=== PATIENT | male | born 1985 | race Caucasian/White ===

== ENCOUNTER 2020-05-14 13:46 | Outpatient (CLI) | payer OTHER, SELFPAY ==
--- NOTE | 2020-05-14 14:00 | ECG_ITS ---
Measurements Intervals [place] Rate: 73 P: 7 SD: 155 QRS: 26 QRSD: 93 T: 81 QT: 363 QTc: 402 Interpretive Statements SINUS RHYTHM NONSPECIFIC ST & T-WAVE ABNORMALITY- HIGH LATERAL LEADS BASELINE ARTIFACT- I, II, AVR BORDERLINE ECG Electronically Signed On 05-14-2020 14:03:10 GATE TECHNICIAN by Yaniv Martinez D.O.
== END 2020-05-14 13:47 | disposition home or self-care (01) ==
PROVIDERS: Visit Provider Otolaryngology
DX: F17.210 Nicotine dependence, cigarettes, uncomplicated (principal); Z01.818 Encounter for other preprocedural examination; R94.31 Abnormal electrocardiogram [ECG] [EKG]
CPT/HCPCS: 93005

== ENCOUNTER → 2020-05-16 01:19 | Outpatient (CLI) | payer OTHER, SELFPAY ==
[2020-05-16 19:47] LABS: SARS-CoV-2 RNA PCR Negative
== END ==
PROVIDERS: Visit Provider Otolaryngology
DX: Z01.812 Encounter for preprocedural laboratory examination (principal); Z20.822 Contact with and (suspected) exposure to COVID-19
CPT/HCPCS: C9803; U0003; U0005

== ENCOUNTER 2020-05-19 01:32 | Day surgery (SDC) | payer OTHER, SELFPAY ==
[2020-05-13 15:57] VITALS: BMI 25.5
[2020-05-19] VITALS (7 sets, daily range): BP systolic 92–133; BP diastolic 54–81; PULSE 62–87; RESP 14–18; TEMP 36.1–36.8; O2SAT 96–100
--- NOTE | 2020-05-19 06:09 | PM.HPGS ---
History of Present Illness History of Present Illness Consent: Risks, benefits, and alternatives have been discussed and questions answered. Patient agrees to proceed with procedure. Chief complaint: Nasal Septum Deviation Narrative: Chris Becker is a 34 year old male has a markedly deviated nasal septum on the right side chest clear however was soft extremities negative Review of Systems Review of Systems: All systems reviewed & are unremarkable except as noted in HPI and below PMFSH Social History Social History Smoking packs per day: 1.5 Smoking cigarettes per day: 30.0 Years smoked: 20 Smoking pack-years: 30.00 Smoking status: Current every day smoker Tobacco type: cigarettes Second hand tobacco smoke exposure: No Alcohol intake: never Substance use: never Substance use type: does not use Living arrangements: with family Spiritual care concerns: No Meds Home Medications and Allergies Home Medications Medication Instructions Recorded Confirmed Type ibuprofen 600 mg PO Q6H PRN 05/13/20 05/13/20 History loratadine 10 mg PO DAILY 05/13/20 05/13/20 History Allergies Allergy/AdvReac Type Severity Reaction Status Date / Time No Known Allergies Allergy Verified 05/13/20 15:51 Exam Narrative: Exam Narrative: septum markedly deviated chest clear heart of the murmurs abdomen soft straight extremities negative Assessment and Plan Additional Plan plan is a nasal septoplasty
--- NOTE | 2020-05-19 06:15 | WPDHPUPDATE1 ---
History and Physical Update Update Date/Time: 05/19/20 06:15 History and Physical has been reviewed, including an updated exam of the patient. There are NO changes in the patient's condition. Risks, benefits, and alternatives have been discussed and questions answered. Patient agrees to proceed with procedure.
--- NOTE | 2020-05-19 08:58 | P.PNAN_ITS ---
Anes - Initial Pre Proc Eval Procedure: Operation Date: 05/19/20 10:30 Proposed Procedures p Septoplasty - Werner Celeste MD Date/Time: 05/19/20 08:58 Surgeon: Werner Celeste MD Pre Op Diagnosis: Nasal Septum Deviation Patient Data Age: 34 Gender: M Height: 5 ft 7 in Weight: 74 kg Allergies Allergy/AdvReac Type Severity Reaction Status Date / Time No Known Allergies Allergy Verified 05/19/20 08:35 Home Medications Medication Instructions Recorded Confirmed Type ibuprofen 600 mg PO Q6H PRN 05/13/20 05/13/20 History loratadine 10 mg PO DAILY 05/13/20 05/13/20 History Patient hx anesthesia problems: none Family hx anesthesia problems: none [facility] Past Medical History Medical History (Updated 05/19/20 @ 08:57 by David Colbert MD) Healthy adult Social History Social History Smoking packs per day: 1.5 Smoking cigarettes per day: 30.0 Years smoked: 20 Smoking pack-years: 30.00 Smoking status: Current every day smoker Tobacco type: cigarettes Second hand tobacco smoke exposure: No Alcohol intake: never Substance use: never Substance use type: does not use Living arrangements: with family Spiritual care concerns: No Anes - Eval Final PreProcedure Day of Procedure 05/19/20 08:58 Patient weight: normal Heart: regular rate and rhythm Lungs: clear to auscultation Airway: Mallampati scale class II Neurological: alert and oriented Last oral intake: 2 hours (sips of water this am) ASA classification: II Emergent: no Anesthetic plan: proceed Anesthesia type and monitoring: general ETT and standard monitoring Informed Consent: The patient's anesthetic plan and its attendant risks and benefits were discussed with the patient/family/POA. Questions were solicited and answers provided to the satisfaction of the patient/family/POA.
[2020-05-19] MEDS: ACETAMINOPHEN 500 MG TABLET 1000 MG PO (09:04)
[2020-05-19] MEDS: LACTATED RINGERS 1,000 ML 30 ML IV CONT (09:04)
[2020-05-19] MEDS: COCAINE HCL (*CRX) 4% TOP SOLN 4 ML VIAL 1 APPLIC TOPICAL (09:38)
[2020-05-19] MEDS: LIDO 1%/EPINEPHRINE 1:100,000 50 ML VIAL 10 ML INFILTRATE (09:39)
--- NOTE | 2020-05-19 09:58 | PM.PROC ---
Procedure Note - Detailed Date of procedure: 05/19/20 Pre-op diagnosis: Nasal Septum Deviation Post-op diagnosis: same Procedure performed: Septoplasty Description of procedure: Patient was prepped and draped in usual fashion after general anesthesia. The nose was injected with xylocaine with Adrenalin and packed with Neosporin Beto-Synephrine on cottonoids. A [] elana transfixation was made anterior and posterior tunnel was elevated. The bony cartilage junction . The bony deviation was removed in its entirety. Swung the cardilege and bone to the midline nose open on both sides. The nose was then packed with Surgicel patient awakened returned to recovery good condition. Anesthesia: GLMA and GETA Surgeon: Werner Celeste MD Estimated blood loss (mL): 10 Drains: No Packing: Yes Pathology: none sent Complications: No immediate complications Condition: stable Disposition: same day Findings: Brian nasal septal deviation
--- NOTE | 2020-05-19 10:07 | PM.PROC ---
Procedure Note - Detailed Date of procedure: 05/19/20 Pre-op diagnosis: Nasal Septum Deviation Surgeon: Werner Celeste MD
--- NOTE | 2020-05-19 10:16 | PM.PROC ---
Procedure Note - Detailed Date of procedure: 05/19/20 Pre-op diagnosis: Nasal Septum Deviation Post-op diagnosis: same Anesthesia: GLMA Surgeon: Werner Celeste MD Estimated blood loss (mL): 10 Drains: No Packing: No Pathology: none sent Complications: No immediate complications Condition: stable Findings: Brian nasal septal deviation
[2020-05-19] MEDS: fentaNYL CITRATE INJ (*CRX) 100 MCG/2 ML VIAL 25 MCG IV PUSH (10:33)
[2020-05-19] MEDS: oxyCODONE HCL (*CRX) 5 MG TAB IR PO (11:40)
== END 2020-05-19 11:45 | disposition home or self-care (01) ==
PROVIDERS: Visit Provider Otolaryngology
PROC: (CPT 30520; principal; 2020-05-19 10:30)
DX: J34.2 Deviated nasal septum (principal); F17.210 Nicotine dependence, cigarettes, uncomplicated
CPT/HCPCS: 30520; 93005; A9270; C9803; J0330; J1100; J2250; J2405; J2704; J3010; J7120; U0003; U0005

== ENCOUNTER 2020-06-02 18:48 | Emergency (ER) | payer OTHER, SELFPAY ==
--- NOTE | ~2020-06-02 | CT_ITS ---
EXAMINATION: CT abdomen pelvis wo con EXAM DATE: 06/02/2020 22:04 INDICATION: Left flank pain. TECHNIQUE: Spiral CT of the abdomen and pelvis was performed without contrast. Axial, coronal and sag ittal images were reviewed. The dose-length product (DLP) for this examination was 352.14 mGy-cm. T he exposure was tailored according to patient size (auto mA exposure control), and iterative reconstr uction (ASIR) was used as additional dose reduction technique. There is no prior study for compariso n. FINDINGS: Punctate nonobstructing left calyceal stone. No ureteral stones or hydronephrosis. Slightly indistinct. Pelvic regions to both kidneys, recommend excluding upper UTI with urinalysis. The prost ate is unremarkable. Small left inguinal fat-containing hernia. The bladder is unremarkable. The li elliott, spleen, adrenal glands and pancreas are unremarkable. Gallbladder is unremarkable. No biliary obstruction. There is no retroperitoneal or pelvic lymphadenopathy. The appendix is not positively visualized. There is no pericecal inflammatory change to suggest appe ndicitis. The stomach and small bowel are unremarkable. There is colonic fluid, correlate for diar stephon. No free intraperitoneal gas. The heart is normal in size. There are no pericardial or pleu ral effusions. The lung bases are unremarkable. The bones are unremarkable. IMPRESSION: 1. Recommend excluding upper UTI with urinalysis. 2. Punctate nonobstructing left calyceal stone. 3. Colonic fluid, correlate for possible diarrhea. Reviewed, dictated and finalized at location A.
[2020-06-02 19:05] VITALS: BP 153/77; PULSE 97; RESP 17; TEMP 36.4; O2SAT 99
[2020-06-02 19:17] LABS: Basophils Absolute Auto 0.1 K/mm3 (0.0-0.1); Basophils Percent Auto 0.6 % (0.2-1.2); Eosinophils Absolute Auto 0.7 K/mm3 (0-0.3); Eosinophils Percent Auto 4.5 % (0-4.4); Hematocrit 45.5 % (42.0-52.0); Hemoglobin 15.3 g/dL (14.0-18.0); Immature Granulocyte Absolute 0.06 K/mm3 (0.00-0.031); Immature Granulocyte Percent A 0.4 % (0-0.5); Lymphocytes Absolute Auto 3.72 K/mm3 (0.9-3.2); Lymphocytes Percent Auto 22.8 % (18.3-44.2); Mean Corpuscular HGB Conc 33.6 g/dl (32-36); Mean Corpuscular Volume 86.2 fl (80-100); Mean Platelet Volume 8.4 fl (7.4-10.4); Monocytes Absolute Auto 1.5 K/mm3 (0.1-0.6); Monocytes Percent Auto 9.1 % (2.6-8.5); Neutrophils Absolute Auto 10.2 K/mm3 (1.3-6.7); Neutrophils Percent Auto 62.6 % (45.5-73.1); Platelet Count Result 550 k/mm3 (150-375); Red Blood Count 5.28 M/mm3 (4.6-6.20); Red Cell Distribution Width 12.1 % (11.5-14.5); White Blood Count 16.3 K/mm3 (4.5-10.0)
[2020-06-02 19:28] LABS: Add Urine Microscopic? YES; Appearance Urine Clear (Clear); Bilirubin Urine Negative (Negative); Blood Urine 2+ (Negative); Color Urine Yellow (Yellow); Glucose Urine UA Negative (Negative); Ketones Urine Negative (Negative); Leukocyte Esterase Ur Negative LEU/UL (Negative); Mucus Urine Rare /lpf; Nitrate Urine Negative (Negative); Protein Urine 1+ mg/dL (Negative); RBC Urine >75 /hpf (0-2); Specific Grav Ur 1.012 (1.001-1.035); Urobilinogen Urine Negative mg/dL (<2.0); WBC Urine 0-3 /hpf
[2020-06-02 19:33] LABS: Alanine Aminotransferase 48 U/L (4-50); Albumin Level 4.3 g/dL (3.5-5.1); Alkaline Phosphatase 101 U/L (38-126); Anion Gap 6 mmol/L (8-16); Aspartate Amino Transferase 25 U/L (17-59); Bilirubin,Total 0.3 mg/dL (0.2-1.3); Blood Urea Nitrogen 16 mg/dL (9-20); Calcium 9.2 mg/dL (8.4-10.2); Carbon Dioxide 31 mmol/L (22-30); Chloride 102 mmol/L (98-107); Estimated CRCL calculation 90 ml/min; Estimated Glomerular Filt Rate > 60; Glucose 97 mg/dL (75-110); Lipase 57 U/L (23-300); Potassium 4.1 mmol/L (3.4-5.0); Sodium 139 mmol/L (137-145)
--- NOTE | 2020-06-02 21:18 | ED.ABDPAIN ---
HPI - Abdominal Pain General Chief Complaint: Abdominal Pain Stated Complaint: abd pain Time Seen by Provider: 06/02/20 21:17 History of Present Illness HPI narrative: Left flank pain for the past 5 days. Started in the back. Over the past few days it has begun moving anterior and inferior. Radiates to the LLQ and occasionally the genitals. Associated with feeling like he needs to urinate. Started after sinus surgery. He thought might be constipated, so he took laxitives. He had a bowel movement, but the pain did not improve. Related Data Home Medications Medication Instructions Recorded Confirmed ibuprofen 600 mg PO Q6H PRN 05/13/20 05/13/20 loratadine 10 mg PO DAILY 05/13/20 05/13/20 Allergies Allergy/AdvReac Type Severity Reaction Status Date / Time No Known Allergies Allergy Verified 05/26/20 11:23 Review of Systems Review of Systems: All systems reviewed & are unremarkable except as noted in HPI and below Constitutional: Constitutional: Denies chills and Denies fever(s) Cardiovascular: Cardiovascular: Denies chest pain Respiratory: Respiratory: Denies dyspnea Gastrointestinal: Gastrointestinal: Reports abdominal pain and Reports nausea Genitourinary: Genitourinary: Reports as per HPI, Denies hematuria and Denies dysuria Musculoskeletal: Musculoskeletal: Reports back pain Neurologic: Reports system reviewed and no additional complaints, except as documented PMFSH Past Medical History Medical History Deviated septum Healthy adult Sinusitis Surgical History Surgical History Status post operation on nasal septum Social History Social History Smoking packs per day: 1.5 Smoking cigarettes per day: 30.0 Years smoked: 20 Smoking pack-years: 30.00 Smoking status: Current every day smoker Tobacco type: cigarettes Second hand tobacco smoke exposure: No Alcohol intake: never Substance use: never Substance use type: does not use Gender identity (if verbalized by the patient): Male Spiritual care concerns: No Exam Const: General: healthy appearing, no acute distress and alert Orientation/consciousness: patient oriented x3 HENMT: Head: normal to inspection Neck: Neck: normal visual inspection Resp: Effort & Inspection: normal respiratory effort Auscultation: clear to auscultation bilaterally, no rales, no rhonchi and no wheezes Cardio: Jugular venous distension: no JVD Rate: regular rate Rhythm: regular rhythm Heart sounds: no murmurs GI: Inspection: non-distended GI Palp: Yes Soft to palpation and No Tenderness to palpation present (GI) : General: Yes no CVA tenderness Skin: General skin exam: normal color Neuro: General: patient oriented x3 and moves all extremities Speech: normal speech Extrem: General: no edema Psych: Appearance: well kempt Affect: normal affect Course Vital Signs Vital signs: Vital Signs Temperature 36.4 C L 06/02/20 19:05 Pulse Rate 97 06/02/20 19:05 Respiratory Rate 17 06/02/20 19:05 Blood Pressure 153/77 H 06/02/20 19:05 Pulse Oximetry 99 06/02/20 19:05 Temperature 36.8 C 06/02/20 23:01 Pulse Rate 79 06/02/20 23:01 Respiratory Rate 16 06/02/20 23:01 Blood Pressure 131/76 06/02/20 23:01 Pulse Oximetry 99 06/02/20 23:01 MDM - Abdominal Pain MDM Narrative Medical decision making narrative: Hx consistent with kidney stone. Significant, microscopic hematuria. No indicators of infection. CT does not show a stone or any other acute findings. He does have some colonic fluid and an elevated WBC count, so I cannot exclude enteritis. I believe he most likely passed a stone prior to CT. His pain is much improved. Differential Diagnosis Differential diagnosis: Likely calculus of kidney, constipation, diverticulitis, pancreatitis
[2020-06-02] MEDS: fentaNYL CITRATE INJ (*CRX) 100 MCG/2 ML VIAL 50 MCG IV PUSH (22:11)
[2020-06-02] MEDS: SODIUM CHLORIDE 0.9% IV 1,000 ML 999 ML IV CONT (22:11)
[2020-06-02 23:01] VITALS: BP 131/76; PULSE 79; RESP 16; TEMP 36.8; O2SAT 99
== END 2020-06-02 23:02 | disposition home or self-care (01) ==
PROVIDERS: Emergency Provider Emergency Medicine
DX: R10.32 Left lower quadrant pain (principal); F17.210 Nicotine dependence, cigarettes, uncomplicated; N20.0 Calculus of kidney
CPT/HCPCS: 36415; 74176; 80053; 81001; 83690; 85025; 96361; 96374; 99284; J3010; J7030

== ENCOUNTER 2022-02-28 12:46 | Emergency (ER) | payer OTHER, SELFPAY ==
--- NOTE | 2022-02-28 12:59 | ED.SOB ---
HPI - SOB/Dyspnea General Chief Complaint: Shortness of Breath/Dyspnea Stated Complaint: shortness of breath Time Seen by Provider: 02/28/22 13:17 Source: patient and RN notes reviewed Mode of arrival: ambulatory Limitations: no limitations History of Present Illness HPI Narrative: 36-year-old male presents concern for one-week history of symptoms. Reports he had cold and flu symptoms a week ago, his symptoms have resolved, however his cough remains and has worsened with shortness of breath and wheezing. He denies a history of asthma, COPD or emphysema. Reports a 19 year history of cigarette smoking. He reports taking over the counter medications without relief MD elicited complaint: shortness of breath and cough Related Data Allergies Allergy/AdvReac Type Severity Reaction Status Date / Time No Known Allergies Allergy Verified 02/28/22 12:59 Review of Systems Review of Systems: CONSTITUTIONAL: Denies malaise, chills, sweats, or fever. EYES: Denies visual changes, redness, or discharge. ENT: Denies rhinorrhea, congestion, sinus pain, otalgia and sore throat. CARDIOVASCULAR: Denies chest pain, palpitations, or edema. RESPIRATORY: Reports cough, reports dyspnea. GASTROINTESTINAL: Denies abdominal pain, nausea, vomiting, diarrhea SKIN: Denies rash or itching. MUSCULOSKELETAL: Denies myalgia. NEUROLOGIC: Denies headache. All systems reviewed & are unremarkable except as noted in HPI and below PMFSH Past Medical History Medical History Deviated septum Healthy adult Sinusitis Surgical History Surgical History Status post operation on nasal septum Social History Social History Smoking packs per day: 1.5 Smoking cigarettes per day: 30.0 Years smoked: 20 Smoking pack-years: 30.00 Smoking status: Current every day smoker Tobacco type: cigarettes Second hand tobacco smoke exposure: No Alcohol intake: never Substance use: never Substance use type: does not use Gender identity (if verbalized by the patient): Male Spiritual care concerns: No Comments At time of signature, agree with nursing past medical, surgical, social and family history. There is no relevant family history pertinent to the presenting complaint Exam Narrative: GENERAL: Well-appearing, well-nourished, and in no acute distress. HEAD: Normocephalic EYES: PERRLA, conjunctivae clear ENT: Nares clear Mucous membranes moist. TM pearly wharton with dull light reflex bilaterally; no tragal tenderness. Oropharynx not erythematous without lesions. Tonsils not enlarged and without exudate, no drooling, no hoarseness, no trismus, uvula midline. NECK: Supple. No lymphadenopathy CHEST: Scattered expiratory wheezes, otherwise Clear to auscultation, breath sounds equal. No wheezing, rales, or stridor. No respiratory distress, speaks in full sentences. HEART: Regular rate and rhythm. No murmur heard. SKIN: Warm, dry, no rash. NEURO: Alert and oriented x3. PSYCH: Normal mood and affect Course Course Emergency Course: Patient is aware of diagnosis, understands and agrees to treatment plan. Anticipatory guidance given. Patient agrees to follow-up as directed and is aware of reasons to seek care at the emergency department. Portions of this record may have been created with voice recognition software Level of Care: Express Care Visit Vital Signs Vital signs: Reviewed. MDM - SOB/Dyspnea MDM Narrative Medical decision making narrative: Differential diagnosis considered: Galvez virus, strep pharyngitis, allergic rhinitis, upper respiratory tract infection, sinusitis, rhinosinusitis, nasopharyngitis. viral pharyngitis, otitis media, otitis externa, pneumonia, bronchitis, viral cough syndrome, viral syndrome, and influenza. Exam findings show no acute concerns or changes; patient i
[2022-02-28 13:01] VITALS: BP 144/92; PULSE 73; RESP 16; TEMP 36.6; O2SAT 99
== END 2022-02-28 13:31 | disposition home or self-care (01) ==
PROVIDERS: Emergency Provider Nurse Practitioner
DX: J40 Bronchitis, not specified as acute or chronic (principal); F17.210 Nicotine dependence, cigarettes, uncomplicated
CPT/HCPCS: 99213; G0463

== ENCOUNTER 2023-10-19 20:50 | Emergency (ER) | payer BC, SELFPAY ==
--- NOTE | ~2023-10-19 | CT_ITS ---
CT lumbar spine wo con Ordering provider: Hortencia Pelayo PA-C History: 38 years Male with . BLE pain, paresthesias in feet . Comparison: None. Technique: CT lumbar spine without contrast. Automated exposure control and iterative reconstruction technique were employed. The dose-length product was 351.26 mGy-cm. FINDINGS: VERTEBRAE: Normal height and alignment. No subluxation or visible acute fracture. Sclerotic area in t he left acetabulum. DISC SPACES: Well maintained. T12-L1: No stenosis. L1-L2: No stenosis. L2-L3: No stenosis. L3-L4: No stenosis. L4-L5: No stenosis. L5-S1: No stenosis. Disc protrusion with nerve root compression in the left lateral recess. PARASPINOUS SOFT TISSUES: Normal aorta. IMPRESSION: No acute osseous abnormalities. Disc protrusion at the level of L5-S1 with nerve root compression the left lateral recess. Reviewed, dictated and finalized at location A. IMPRESSION: No acute osseous abnormalities. Disc protrusion at the level of L5-S1 with nerve root compression the left late ral recess.
--- NOTE | ~2023-10-19 | XR_ITS ---
XR chest 2V Ordering provider: Hortencia Pelayo PA-C History: 38 years Male with . weak, leukocytosis. BODY ACHES . Comparison: November 18, 2013 FINDINGS: MEDIASTINUM: The cardiac silhouette is not enlarged. LUNGS: No infiltrates, effusions or pneumothorax. OTHER: No free air under the diaphragm. IMPRESSION: No acute cardiopulmonary pathology. Reviewed, dictated and finalized at location A.
[2023-10-19 20:59] VITALS: BP 147/86; PULSE 88; RESP 18; TEMP 36.6; O2SAT 100
[2023-10-19 21:35] VITALS: RESP 18; O2SAT 98
[2023-10-19 21:40] LABS: Influenza A QL RT-PCR Negative (Negative); Influenza B QL RT-PCR Negative (Negative); RSV RNA, RT-PCR Negative (Negative); SARS-CoV-2 RNA PCR Negative (Negative)
--- NOTE | 2023-10-19 22:09 | ED.GENADULT ---
HPI - General Adult General Chief complaint: Unspecified Stated complaint: body aches, fatigue Time Seen by Provider: 10/19/23 20:57 History of Present Illness HPI narrative: 38-year-old male presents to the emergency department with body aches. Patient states he has aches in his bilateral hips, knees and ankles as well as tingling in his feet. This has been going on For 1 month but seems to be worse today. He states he has seen his PCP for this and has been prescribed Celebrex which he has been taking. He states he is trying to get into a specialist is unsure what specialist he is trying to get into. He denies injury or trauma, back pain, dysuria hematuria, saddle anesthesia, urinary or bowel incontinence or retention, fever, cough or congestion, abdominal pain, nausea/ vomiting /diarrhea. States he took NyQuil today without relief. He was concerned he had COVID. States he took a COVID test at home which is negative. Denies ETOH or IV drug use. Denies immunocompromised condition. Related Data Allergies Allergy/AdvReac Type Severity Reaction Status Date / Time No Known Allergies Allergy Verified 10/19/23 21:38 Review of Systems Review of Systems: All systems reviewed & are unremarkable except as noted in HPI and below PMFSH Past Medical History Medical History Deviated septum Healthy adult Sinusitis Surgical History Surgical History Status post operation on nasal septum Social History Social History Smoking packs per day: 1.5 Smoking cigarettes per day: 30.0 Years smoked: 20 Smoking pack-years: 30.00 Smoking status: Current every day smoker Tobacco type: cigarettes Second hand tobacco smoke exposure: No Alcohol intake: never Substance use: never Substance use type: does not use Living arrangements: with family Gender identity (if verbalized by the patient): Male Spiritual care concerns: No Exam Narrative: GENERAL: Well-appearing, well-nourished, and in no acute distress. HEAD: Normocephalic, atraumatic. EYES: PERRLA and EOMI. ENT: Nares clear, no rhinorrhea or epistaxis. Mucous membranes moist. NECK: Supple. no midline thoracolumbar spinous tenderness, step-offs or deformities CHEST: Clear to auscultation. No respiratory distress. HEART: Regular rate and rhythm. No murmur heard. Normal peripheral pulses. ABDOMEN: Soft, nontender, nondistended, normal active bowel sounds. EXTREMITIES: Normal range of motion. No edema. no tenderness to bilateral lower extremities on palpation. DP pulses 2+. Sensation intact. Strength 5/5 in BLE. No saddle anesthesia. SKIN: Warm, dry, no rash. NEURO: No focal deficits. Alert and oriented x3 Course Vital Signs Vital signs: Vital Signs Temperature 97.8 F 10/19/23 20:59 Pulse Rate 88 10/19/23 20:59 Respiratory Rate 18 10/19/23 20:59 Blood Pressure 147/86 H 10/19/23 20:59 Pulse Oximetry 100 10/19/23 20:59 Oxygen Delivery Room Air 10/19/23 20:59 Temperature 97.8 F 10/19/23 20:59 Pulse Rate 88 10/19/23 20:59 Respiratory Rate 18 10/19/23 21:35 Blood Pressure 147/86 H 10/19/23 20:59 Pulse Oximetry 98 10/19/23 21:35 Oxygen Delivery Room Air 10/19/23 20:59 Medical Decision Making [facility] Narrative Medical decision making narrative: 38-year-old male presents to the emergency department for body aches, hip pain, knee pain and ankle pain and tingling in his feet for 1 month, worse today. Vitals with blood pressure of 147/86 otherwise unremarkable. He is afebrile nontoxic appearing. Exam is significant for the above. Concern for viral syndrome, COVID/flu, rheumatologic condition such as PMR. Will obtain lab work, ESR and CRP and re-evaluate. CBC remarkable for leukocytosis of 15.3. Chemistries with elevation in ALT of 94, ot
[2023-10-19] MEDS: KETOROLAC 15 MG/ML VIAL (*BKC) IV PUSH (22:20)
[2023-10-19 22:23] LABS: Basophils Absolute Auto 0.1 K/mm3 (0.0-0.1); Basophils Percent Auto 0.6 % (0.2-1.2); Eosinophils Absolute Auto 0.8 K/mm3 (0-0.3); Eosinophils Percent Auto 4.9 % (0-4.4); Hematocrit 49.2 % (42.0-52.0); Immature Granulocyte Absolute 0.05 K/mm3 (0.00-0.031); Immature Granulocyte Percent A 0.3 % (0-0.5); Lymphocytes Absolute Auto 4.21 K/mm3 (0.9-3.2); Lymphocytes Percent Auto 27.6 % (18.3-44.2); Mean Corpuscular HGB Conc 34.6 g/dl (32-36); Mean Corpuscular Hemoglobin 29.8 pg (26-34); Mean Corpuscular Volume 86.3 fl (80-100); Mean Platelet Volume 8.7 fl (7.4-10.4); Monocytes Absolute Auto 1.3 K/mm3 (0.1-0.6); Monocytes Percent Auto 8.2 % (2.6-8.5); Neutrophils Absolute Auto 8.9 K/mm3 (1.3-6.7); Neutrophils Percent Auto 58.4 % (45.5-73.1); Platelet Count Result 396 k/mm3 (150-375); Red Cell Distribution Width 12.3 % (11.5-14.5); White Blood Count 15.3 K/mm3 (4.5-10.0)
[2023-10-19 22:24] LABS: Add Urine Microscopic? NO; Appearance Urine Clear (Clear); Bilirubin Urine Negative (Negative); Blood Urine Negative (Negative); Color Urine Yellow (Yellow); Glucose Urine UA Negative (Negative); Ketones Urine Negative (Negative); Leukocyte Esterase Ur Negative LEU/UL (Negative); Nitrate Urine Negative (Negative); Protein Urine Negative (Negative); Specific Grav Ur 1.002 (1.001-1.035); Urobilinogen Urine 0.2 mg/dL (<2.0)
[2023-10-19 22:48] LABS: Alanine Aminotransferase 94 U/L (6-50); Albumin Level 5.1 g/dL (3.5-5.1); Alkaline Phosphatase 65 U/L (38-126); Anion Gap 12 mmol/L (4-12); Aspartate Amino Transferase 46 U/L (17-59); Bilirubin,Total 0.7 mg/dL (0.2-1.3); Blood Urea Nitrogen 10 mg/dL (9-20); CRP < 0.5 mg/dL (<1.0); Calcium 9.8 mg/dL (8.4-10.2); Carbon Dioxide 27 mmol/L (22-30); Chloride 101 mmol/L (98-107); Erythrocyte Sedimentation Rate 2 mm/hr (0-20); Estimated CRCL calculation 90 ml/min; Estimated Glomerular Filt Rate > 60; Glucose 95 mg/dL (65-110); Potassium 4.4 mmol/L (3.4-5.0); Sodium 140 mmol/L (137-145)
[2023-10-19] MEDS: CYCLOBENZAPRINE HCL 10 MG TABLET PO (23:24)
[2023-10-20 00:10] VITALS: BP 136/80; PULSE 80; RESP 19; O2SAT 100
== END 2023-10-20 00:10 | disposition home or self-care (01) ==
PROVIDERS: Preventive Medicine Aerospace Medicine; Emergency Provider Physician Assistant
DX: M25.552 Pain in left hip (principal); M25.551 Pain in right hip; M25.562 Pain in left knee; M25.561 Pain in right knee; M25.572 Pain in left ankle and joints of left foot; M25.571 Pain in right ankle and joints of right foot; R20.2 Paresthesia of skin; Z20.822 Contact with and (suspected) exposure to COVID-19; F17.210 Nicotine dependence, cigarettes, uncomplicated
CPT/HCPCS: 36415; 71046; 72131; 80053; 81003; 85025; 85652; 86140; 87637; 96374; 99284; A9270; J1885

== ENCOUNTER 2023-10-20 22:11 | Emergency (ER) | payer BC, SELFPAY ==
[2023-10-20 22:21] VITALS: BP 135/80; PULSE 98; RESP 17; TEMP 36.8; O2SAT 100
[2023-10-20 23:36] VITALS: RESP 18; O2SAT 100
[2023-10-21] MEDS: oxyCODONE/ACETAMINOPHEN (*CRX) 5-325 MG TABLET 1 TABLET PO
[2023-10-21] MEDS: predniSONE 20 MG TABLET 40 MG PO
--- NOTE | 2023-10-21 00:15 | ED.GENADULT ---
HPI - General Adult General Chief complaint: Unspecified Stated complaint: Joint pain Time Seen by Provider: 10/20/23 23:41 History of Present Illness HPI narrative: Patient has been having months now joint pain, has gotten to the point where he is having trouble sleeping at night due to how bad the pain is. 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, already on NSAIDs, muscle relaxants, has tried steroids, nothing has helped Related Data Allergies Allergy/AdvReac Type Severity Reaction Status Date / Time No Known Allergies Allergy Verified 10/19/23 21:38 Review of Systems Review of Systems: All systems reviewed & are unremarkable except as noted in HPI and below PMFSH Past Medical History Medical History Deviated septum Healthy adult Sinusitis Surgical History Surgical History Status post operation on nasal septum Social History Social History Smoking packs per day: 1.5 Smoking cigarettes per day: 30.0 Years smoked: 20 Smoking pack-years: 30.00 Smoking status: Current every day smoker Tobacco type: cigarettes Second hand tobacco smoke exposure: No Alcohol intake: never Substance use: never Substance use type: does not use Living arrangements: with family Gender identity (if verbalized by the patient): Male Spiritual care concerns: No Exam Narrative: EXAMINATION OF ORGAN SYSTEMS/BODY AREAS: Constitutional: Vital signs per nursing GENERAL:[No acute distress, non-toxic appearing.] HEAD: Normal with no signs of head trauma. EYES: EOMI, conjunctiva normal ENT: Hearing grossly intact LUNGS: Nonlabored breathing. HEART: [Regular rate and rhythm] ABD: no distension EXT: Normal range of motion, no deformity SKIN: [No rashes or lesions.] NEURO: [Alert and oriented x 3. No gross focal sensory or strength deficits.] PSYCH: Normal affect Course Vital Signs Vital signs: Vital Signs Temperature 98.2 F 10/20/23 22:21 Pulse Rate 98 10/20/23 22:21 Respiratory Rate 17 10/20/23 22:21 Blood Pressure 135/80 10/20/23 22:21 Pulse Oximetry 100 10/20/23 22:21 Oxygen Delivery Room Air 10/20/23 22:21 Temperature 98.2 F 10/20/23 22:21 Pulse Rate 98 10/20/23 22:21 Respiratory Rate 18 10/20/23 23:36 Blood Pressure 135/80 10/20/23 22:21 Pulse Oximetry 100 10/20/23 23:36 Oxygen Delivery Room Air 10/20/23 22:21 Medical Decision Making MDM Narrative Medical decision making narrative: patient coming with chronic joint pain now for more than a month, has tried multiple different pain medications without improvement, seen yesterday here with essentially negative workup. He is overall well appearing here with nl VS and chronic symptoms so I have low concern for acute emergency. Will try low dose oxycodone here and steroid course with follow up to his PCP. Pt agreeable to plan Vital Signs Vital Signs: Vital Signs Temperature 98.2 F 10/20/23 22:21 Pulse Rate 98 10/20/23 22:21 Respiratory Rate 17 10/20/23 22:21 Blood Pressure 135/80 10/20/23 22:21 Pulse Oximetry 100 10/20/23 22:21 Oxygen Delivery Room Air 10/20/23 22:21 Temperature 98.2 F 10/20/23 22:21 Pulse Rate 98 10/20/23 22:21 Respiratory Rate 18 10/20/23 23:36 Blood Pressure 135/80 10/20/23 22:21 Pulse Oximetry 100 10/20/23 23:36 Oxygen Delivery Room Air 10/20/23 22:21 Discharge Plan Discharge Clinical Impression: Chronic joint pain Patient Disposition: Home, Self-Care Condition: Stable Instructions: Antibiotic Form, Arthralgia (ED) Additional Instructions: Please follow up with your doctor; you can always return for any further issues. Prescriptions: New prednisone 20 mg
== END 2023-10-21 00:05 | disposition home or self-care (01) ==
PROVIDERS: Emergency Provider Emergency Medicine
DX: M25.50 Pain in unspecified joint (principal); G89.29 Other chronic pain; F17.210 Nicotine dependence, cigarettes, uncomplicated
CPT/HCPCS: 99283; A9270; J7512

== ENCOUNTER 2024-02-18 12:31 | Emergency (ER) | payer BC, SELFPAY ==
[2024-02-18 12:41] VITALS: BP 117/87; PULSE 98; RESP 16; TEMP 36.7; O2SAT 100
--- NOTE | 2024-02-18 14:49 | ED.EXTPRO ---
HPI - Extremity Problem General Chief complaint: Extremity Problem,Nontraumatic Stated complaint: chronic joint pain Time Seen by Provider: 02/18/24 14:40 Source: patient Mode of arrival: ambulatory Limitations: no limitations History of Present Illness HPI Narrative: Patient is a 38-year-old male who presents the ED with report of joint pain. Reports having pain in his joints, knees, shoulders, ankle, R hip. States pain has been present for the last several months and has intermittent flare ups of worsening pain. States pain has been worse since Monday. He has seen his primary for this and is scheduled to see Rheumatology on 02/25. Has been trialed on steroids, is currently on meloxicam. Took his meloxicam last night and a muscle relaxer this morning but denied improvement of pain. Per records, patient has been seen in the ED here for similar symptoms in the past. Denies weakness, numbness, rash, erythema/warmth to joints, fevers. Denies any recent falls or injuries. Related Data Allergies Allergy/AdvReac Type Severity Reaction Status Date / Time No Known Allergies Allergy Verified 02/18/24 12:33 Review of Systems Review of Systems: All systems reviewed & are unremarkable except as noted in HPI. All systems reviewed & are unremarkable except as noted in HPI and below PMFSH Past Medical History Medical History Deviated septum Healthy adult Sinusitis Surgical History Surgical History Status post operation on nasal septum Social History Social History Smoking packs per day: 1.5 Smoking cigarettes per day: 30.0 Years smoked: 20 Smoking pack-years: 30.00 Smoking status: Current every day smoker Tobacco type: cigarettes Second hand tobacco smoke exposure: No Alcohol intake: never Substance use: never Substance use type: does not use Living arrangements: with family Gender identity (if verbalized by the patient): Male Spiritual care concerns: No Exam Narrative: GENERAL: Well appearing, well-nourished, non-toxic, in no acute distress. HEAD: Normocephalic, atraumatic. RESPIRATORY: Airway patent, respirations nonlabored. Clear to auscultation bilaterally, no rales, rhonchi, wheezing. CARDIOVASCULAR: Regular rate and rhythm without murmurs, rubs, or gallops. MUSCULOSKELETAL: Moves all extremities. No gross deformities. No significant focal tenderness. No swelling of joints. SKIN: Warm, dry, normal color. No rash. NEURO: A&O X3. Speech clear. Cranial nerves II-XII grossly intact. Steady gait. No ataxic movements. No gross focal deficits. PSYCHIATRIC: Appropriate mood and affect. Normal interaction. Course Vital Signs Vital signs: Vital Signs Temperature 98.0 F 02/18/24 12:41 Pulse Rate 98 02/18/24 12:41 Respiratory Rate 16 02/18/24 12:41 Blood Pressure 117/87 02/18/24 12:41 Pulse Oximetry 100 02/18/24 12:41 Temperature 97.4 F L 02/18/24 16:37 Pulse Rate 76 02/18/24 16:37 Respiratory Rate 16 02/18/24 16:37 Blood Pressure 126/70 02/18/24 16:37 Pulse Oximetry 100 02/18/24 16:37 MDM - Extremity (Nontraumatic) MDM Narrative Medical decision making narrative: Patient presented to ED with acute on chronic joint pain. In the process of being referred to rheumatology for evaluation of possible rheumatoid arthritis. Patient reporting worsening pain over the last several days. Exam is unremarkable. No evidence of septic joint. Denies any rash, fevers, erythema/warmth/swelling around joints. No injury to suggest need for further imaging. No gross deformities. No evidence of DVT. No URI sx's to suggest myalgias from viral infection. Vitals are stable. Afebrile. Laboratory studies were obtained and unremarkable aside from a minimal leukocytosis of 12.4. This appears consistent with previous records. Normal electrolytes. Normal CK. Patient was given Solu-Medrol, Toradol, Fred in the ED. On re-evaluation, he is feeling much improved. States pain is much more tolerable. Feels ready to go home at this time. Will discharge patient on short Medrol Dosepak and prescribe a few doses of Fred for home use for more severe pain. I did [place], [place] since [place] (after [place] visit here). I do not have suspicion for drug-seeking behavior at this time. Patient advised to have close follow-up with PCP and Rheumatology for further evaluation. Given strict return precautions. He agrees with plan. Discharged in stable condition. Medical Records Attestation: I reviewed the patient's medical records. Lab Data Attestation: I reviewed the patient's lab results. 02/18/24 15:14 02/18/24 15:14 Labs: Lab Results 02/18/24 Range/Units 15:14 WBC 12.4 H (4.5-10.0) K/mm3 RBC 5.70 (4.6-6.20) M/mm3 Hgb 16.8 (14.0-18.0) g/dL Hct 49.1 (42.0-52.0) % MCV 86.1 (80-100) fl MCH 29.5 (26-34) pg MCHC 34.2 (32-36) g/dl RDW 12.2 (11.5-14.5) % Plt Count 383 H (150-375) k/mm3 MPV 8.9 (7.4-10.4) fl Immature Gran % (Auto) 0.2 (0-0.5) % Neut % (Auto) 63.5 (45.5-73.1) % Lymph % (Auto) 24.1 (18.3-44.2) % [place] % (Auto) 8.0 (2.6-8.5) % Eos % (Auto) 3.5 (0-4.4) % Baso % (Auto) 0.7 (0.2-1.2) % Lymph # (Auto) 2.98 (0.9-3.2) K/mm3 [place] # (Auto) 1.0 H (0.1-0.6) K/mm3 Eos # (Auto) 0.4 H (0-0.3) K/mm3 Baso # (Auto) 0.1 (0.0-0.1) K/mm3 Abs Immat Gran (auto) 0.03 (0.00-0.031) K/mm3 Absolute Neuts (auto) 7.8 H (1.3-6.7) K/mm3 Absolute Nucleated RBC 0.000 (0.0-0.012) K/mm3 Nucleated RBC % 0.0 (0.0-0.2) % Sodium 138 (137-145) mmol/L Potassium 4.2 (3.4-5.0) mmol/L Chloride 105 (98-107) mmol/L Carbon Dioxide 25 (22-30) mmol/L Anion Gap 8 (4-12) mmol/L BUN 13 (9-20) mg/dL Creatinine 0.80 (0.7-1.3) mg/dL Estim Creat Clear Calc 100 ml/min Estimated GFR > 60 (59 - ) Glucose 99 (65-110) mg/dL Calcium 10.2 (8.4-10.2) mg/dL Magnesium 2.1 (1.6-2.3) mg/dL Total Bilirubin 0.6 (0.2-1.3) mg/dL AST 41 (17-59) U/L ALT 81 H (6-50) U/L Alkaline Phosphatase 65 (38-126) U/L Total Creatine Kinase 67 (55-170) U/L Total Protein 9.0 H (6.3-8.2) g/dL Albumin 5.0 (3.5-5.1) g/dL Discharge Plan Discharge Clinical Impression: Diffuse arthralgia Patient Disposition: Home, Self-Care Condition: Stable Instructions: Antibiotic Form, Musculoskeletal Pain (ED), Arthritis (ED) Additional Instructions: Your laboratory testing here was normal. Recommend close follow up with your primary care doctor and supervisory civil engineer for further evaluation management of joint pains. Take steroid pack as prescribed over the next several days. Continue Meloxicam, Tylenol, muscle relaxers as needed for pain. Utilize Fred as needed for more severe pain. Do not drive, operate heavy machinery, drink alcohol while on muscle relaxers or Fred as these may cause further sedation. Return to the ED if you experience worsening or severe pain, injury, unable to keep down food or drink, persistent fevers, redness or warmth of joints, rash, or any other symptoms of concern. Prescriptions: New methylprednisolone [Medrol (Adonay)] 4 mg tablets,dose pack See Rx Instructions PO .COMPLEX Qty: 21 0RF Rx Instructions: orally per package directions hydrocodone-acetaminophen 5-325 mg tablet 1 tablet PO Q6H PRN (Reason: pain) Qty: 5 0RF No Action azithromycin [Zithromax Z-Adonay] 250 mg tablet See Rx Instructions .ROUTE .COMPLEX Qty: 6 0RF Rx Instructions: take 500 mg today (day 1), then 250 mg for 4 days (days 2-5) methylprednisolone [Medrol (Adonay)] 4 mg tablets,dose pack See Rx Instructions .ROUTE .COMPLEX Qty: 21 0RF Rx Instructions: orally per package directions albuterol sulfate 90 mcg/actuation HFA aerosol inhaler 2 puff INHALATION QID PRN (Reason: shortness of breath or wheezing) Qty: 8.5 0RF prednisone 20 mg tablet 40 mg PO DAILY 5 Days Qty: 10 0RF oxycodone 5 mg capsule 5 mg PO Q8H PRN (Reason: pain) Qty: 7 0RF cyclobenzaprine 10 mg tablet 10 mg PO TID PRN (Reason: muscle spasm) Qty: 14 0RF Follow-up/Referrals: PHYSICIAN,GRAIN BLENDER [Non-Staff] - Stand Alone Forms: Work/School Release IP Time of Disposition: 16:27
[2024-02-18 15:22] LABS: Basophils Absolute Auto 0.1 K/mm3 (0.0-0.1); Basophils Percent Auto 0.7 % (0.2-1.2); Eosinophils Absolute Auto 0.4 K/mm3 (0-0.3); Eosinophils Percent Auto 3.5 % (0-4.4); Hematocrit 49.1 % (42.0-52.0); Hemoglobin 16.8 g/dL (14.0-18.0); Immature Granulocyte Absolute 0.03 K/mm3 (0.00-0.031); Immature Granulocyte Percent A 0.2 % (0-0.5); Lymphocytes Absolute Auto 2.98 K/mm3 (0.9-3.2); Lymphocytes Percent Auto 24.1 % (18.3-44.2); Mean Corpuscular HGB Conc 34.2 g/dl (32-36); Mean Corpuscular Hemoglobin 29.5 pg (26-34); Mean Corpuscular Volume 86.1 fl (80-100); Mean Platelet Volume 8.9 fl (7.4-10.4); Neutrophils Absolute Auto 7.8 K/mm3 (1.3-6.7); Neutrophils Percent Auto 63.5 % (45.5-73.1); Platelet Count Result 383 k/mm3 (150-375); Red Cell Distribution Width 12.2 % (11.5-14.5); White Blood Count 12.4 K/mm3 (4.5-10.0)
[2024-02-18] MEDS: HYDROcodone/acetaminophen (*CRX) 5-325 MG TABLET 1 TAB PO (15:22)
[2024-02-18] MEDS: KETOROLAC (*BKC) 60 MG/2 ML VIAL IM (15:22)
[2024-02-18] MEDS: methylPREDNISolone SOD SUCC 125 MG VIAL IM (15:22)
[2024-02-18 15:33] LABS: Alanine Aminotransferase 81 U/L (6-50); Alkaline Phosphatase 65 U/L (38-126); Anion Gap 8 mmol/L (4-12); Aspartate Amino Transferase 41 U/L (17-59); Bilirubin,Total 0.6 mg/dL (0.2-1.3); Blood Urea Nitrogen 13 mg/dL (9-20); Calcium 10.2 mg/dL (8.4-10.2); Carbon Dioxide 25 mmol/L (22-30); Chloride 105 mmol/L (98-107); Creatine Kinase 67 U/L (55-170); Estimated CRCL calculation 100 ml/min; Estimated Glomerular Filt Rate > 60; Glucose 99 mg/dL (65-110); Magnesium 2.1 mg/dL (1.6-2.3); Potassium 4.2 mmol/L (3.4-5.0); Sodium 138 mmol/L (137-145)
[2024-02-18 16:37] VITALS: BP 126/70; PULSE 76; RESP 16; TEMP 36.3; O2SAT 100
== END 2024-02-18 16:39 | disposition home or self-care (01) ==
PROVIDERS: Emergency Provider Physician Assistant
DX: M25.561 Pain in right knee (principal); M25.512 Pain in left shoulder; M25.511 Pain in right shoulder; M25.552 Pain in left hip; M25.551 Pain in right hip; M25.572 Pain in left ankle and joints of left foot; M25.571 Pain in right ankle and joints of right foot; M25.562 Pain in left knee
CPT/HCPCS: 36415; 80053; 82550; 83735; 85025; 96372; 99284; A9270; J1885; J2919